=== PATIENT | female | born 1940 | race Hispanic/Latino ===

== ENCOUNTER 2025-05-01 13:51 | Emergency (ER) | payer MEDICARE ==
[~2025-05-01] VITALS: Ht 154.9 cm; Wt 62.6 kg
[~2025-05-01 13:51] MED LIST: AMLO-257 PO; ASPI-1005 PO; DOCU-116 PO; GABA-529 PO; HYDR-3421 PO; LEVO-70 PO; LOSA50TA64 PO; METO25TA6 PO; MIRA25TA PO; OMEP20CA12 PO; PIOG30TA70 PO
[2025-05-01 14:29] VITALS: TEMP 98
[2025-05-01] MEDS: ORPHENADRINE 60MG/2ML IM ONE (15:30)
[2025-05-01 15:33] LABS: IMMATURE GRANULOCYTE ABSOLUTE 0.02 K/uL (0-1); NUCLEATED RED BLOOD CELLS 0.0 % (0.0-0.19); PLATELET COUNT (AUTO) 245 K/uL (130-400); RED BLOOD CELL COUNT(AUTO) 4.08 MIL/uL (4.00-5.50); RED CELL DISTRIBUTION WIDTH 15.2 % (11.0-15.5); WHITE BLOOD COUNT (AUTO) 5.9 K/uL (4.8-10.8)
[2025-05-01 15:46] LABS: CREATINE KINASE, TOTAL 28.0 U/L (21-232); CREATININE 0.6 mg/dL (0.5-1.0); GLOMERULAR FILTR. RATE CALC 88.0 mL/min (>90); GLUCOSE,RANDOM 211.0 mg/dL (70-105); SODIUM SERUM 143.0 mmol/L (136-145); UREA NITROGEN, BLOOD 11.0 mg/dL (7-18)
--- NOTE | 2025-05-01 15:54 | NUR ---
K-3.0 MICHI MADE AWARE
--- NOTE | 2025-05-01 16:04 | ERN ---
General Chief Complaint: Upper Extremity Pain/Injury Stated Complaint: PAIN TO THE RIGHT ARM Time Seen by MD: 13:52 Source: patient History of Present Illness Initial Comments PATIENT IS AN 85-YEAR-OLD FEMALE COMING IN TO BE EVALUATED FOR LEFT SHOULDER PAIN. PER PATIENT THE PAIN HAS BEEN ONGOING FOR A COUPLE OF DAYS. THE PAIN RADIATES TO THE LEFT TRAPEZIUS AREA. SHE DID NOT RECALL ANY FALLING OR ANY TRAUMA THAT COULD HAVE CAUSED IT. Allergies: Uncoded Allergies: PENCILLIN (Allergy, Unknown, 12/23/23) Home Meds Active Scripts Levofloxacin (Levofloxacin) 500 Mg Tablet, 500 MG PO DAILY, #4 TAB Prov:SILASELI B AGPCNP 02/13/25 Reported Medications Mirabegron (Myrbetriq) 25 Mg Tab.er.24h, 1 TAB PO DAILY for 30 Days, #30 TAB 0 Refills 02/10/25 Losartan Potassium (Losartan Potassium) 50 Mg Tablet, 50 MG PO BID, TAB 02/10/25 Docusate Sodium (Colace) 100 Mg Capsule, 100 MG PO BID, CAP 02/10/25 Pioglitazone HCl (Pioglitazone HCl) 30 Mg Tablet, 30 MG PO AM, TAB 02/10/25 Gabapentin (Gabapentin) 100 Mg Capsule, 300 MG PO BID, CAP 02/10/25 Omeprazole (Omeprazole) 20 Mg Capsule.dr, 20 MG PO AM, CAP 02/10/25 Hydroxyzine HCl (Hydroxyzine HCl) 25 Mg Tablet, 1 TAB PO QIDP for ITCHING for 10 Days, #30 TAB 0 Refills 02/10/25 Aspirin (ASPIRIN 81MG CHEW TAB) 81 Mg Tab.chew, 81 MG PO DAILY, TAB.CHEW 02/10/25 Amlodipine Besylate (Amlodipine Besylate) 5 Mg Tablet, 5 MG PO AM, TAB 02/10/25 Metoprolol Tartrate (Metoprolol Tartrate) 25 Mg Tablet, 1 TAB PO BID for 30 Days, #60 TAB 0 Refills 02/10/25 Past Medical History Past Medical History: CVA, Diabetes-Type II, GERD, High Cholesterol, Hypertension, Other Medical History Other: RA Past Surgical History: Cholecystectomy ROS Dictation CONSTITUTIONAL: NO CHILLS, NO FEVER, NO WEAKNESS, NO DIAPHORESIS, NO MALAISE. HEAD/FACE: NO SIGNS OF TRAUMA. EENT: NO EYE PAIN, NO BLURRED VISION, NO TEARING, NO DOUBLE VISION, NO EAR PAIN, NO EAR DISCHARGE, NO NOSE PAIN, NO NASAL CONGESTION, NO THROAT PAIN, NO THROAT SWELLING, NO MOUTH PAIN. RESPIRATORY: NO COUGH, NO ORTHOPNEA, NO SOB, NO STRIDOR, NO WHEEZING. CARDIOVASCULAR: NO CHEST PAIN, NO EDEMA, NO PALPITATIONS, NO SYNCOPE. GASTROINTESTINAL/ABDOMINAL: NO ABDOMINAL PAIN, NO CONSTIPATION, NO DIARRHEA, NO NAUSEA, NO VOMITING. GENITOURINARY: NO ABNORMAL DISCHARGE, NO DYSURIA, NO FREQUENT URINATION, NO HEMATURIA. NO COMPLAINTS OF PAIN IN THE GENITALS. MUSCULOSKELETAL: NO BACK PAIN, NO GOUT, JOINT PAIN, NO JOINT SWELLING, MUSCLE PAIN, NO MUSCLE STIFFNESS, NO NECK PAIN. INTEGUMENTARY: NO CHANGE IN COLOR, NO CHANGE IN HAIR/NAILS, NO DRYNESS, NO LESI ON, NO LUMPS, NO RASH. NEUROLOGICAL/PSYCH: NO ANXIETY, NOT DEPRESSED, NO EMOTIONAL PROBLEM, NO HEADACHE, NO NUMBNESS, NO PRE-EXISTING DEFICIT, NO HISTORY OF SEIZURES, NO TREMORS, NO WEAKNESS. HEMATOLOGIC/LYMPHATIC: NOT ANEMIC, NO HISTORY OF BLOOD CLOTS, NO APPARENT BLEEDING, NO BRUISING, GLANDS NOT SWOLLEN. ALL SYSTEMS NEGATIVE, EXCEPT NOTED. Physical Exam Physical Exam Dictation VITAL SIGNS: REVIEWED. GENERAL APPEARANCE: ALERT, ORIENTED X3, NO ACUTE DISTRESS, OBESE. HEAD AND FACE: NON-TRAUMATIC. EYES: PERRL, PINK CONJUNCTIVAS, EYELID NO TRAUMA, ANTERIOR CHAMBER CLEAR. EARS: PINNAS INTACT AND NO SIGNS OF TRAUMA OR ERYTHEMA. EAR CANALS CLEAR AND NO DISCHARGE. TMS NO ERYTHEMA. NOSE: NO DISCHARGE, NO BLEEDING. OROPHARYNX: MOUTH NORMAL, TEETH NO CARIES, TONGUE PINK. PHARYNX CLEAR, NO ERYTHEMA. TONSILS NO EXUDATES, NO ABSCESSES NOTED. MUCOUS MEMBRANE MOIST. NECK: SUPPLE, NON-TENDER, NO THYROMEGALY, NO MASSES, NO JVD, NO BRUITS. BREAST: DEFERRED. CHEST: NO TENDERNESS, NO CREPITUS, NO PARADOXICAL MOVEMENT, NO RETRACTIONS. LUNGS: CLEAR, WELL-VENTILATED, SYMMETRIC, NO RALES, NO WHEEZING, NO RHONCHI, NO STRIDOR, GOOD BREATH SOUNDS BILATERALLY. HEART: REGULAR RATE, REGULAR RHYTHM, NO MURMUR, NO GALLOPS. VASCULAR: NO PERIPHERAL EDEMA. ABDOMEN: SOFT, POSITIVE BOWEL SOUNDS, NONDISTENDED, NO GUARDING, NONTENDER, NO REBOUND, NO MASSES NO HEPATOMEGALY, NO SPLENOMEGALY, NO IBARRA'S SIGN, NO HERNIAS. RECTAL: DEFERRED. GENITAL: DEFERRED. NEUROLOGICAL: NORMAL SPEECH, GROSS MOTOR FUNCTION INTACT, GROSS SENSORY FUNCTION INTACT. MUSCULOSKELETAL: NECK NONTENDER, FULL RANGE OF MOTION, BACK NONTENDER, FULL RANGE OF MOTION. EXTREMITIES: NONTENDER, FULL RANGE OF MOTION. LEFT SHOULDER PAIN ON PALPATION SKIN: COLOR PINK, DRY, NO TURGOR, NO RASH, NO LACERATIONS, NO ABRASIONS, NO CONTUSIONS. LYMPHATICS: DEFERRED. Results Laboratory and Microbiology Lab and Micro Result Laboratory Tests Test 05/01/25 15:27 White Blood Count 5.9 K/uL (4.8-10.8) Red Blood Count 4.08 MIL/uL (4.00-5.50) Hemoglobin 12.8 g/dL (12.0-16.0) Hematocrit 38.7 % (36-48) Mean Corpuscular Volume 94.9 fL (79-99) Mean Corpuscular Hemoglobin 31.4 pg (27.0-33.0) Mean Corpuscular Hemoglobin Concent 33.1 g/dL (32.0-36.0) Red Cell Distribution Width 15.2 % (11.0-15.5) Platelet Count 245 K/uL (130-400) Mean Platelet Volume 11.2 fL (7.5-10.5) H Immature Granulocyte % (Auto) 0.3 % (0-1) Neutrophils (%) (Auto) 52.6 % (40.0-77.0) Lymphocytes (%) (Auto) 37.9 % (21.0-51.0) Monocytes (%) (Auto) 4.9 % (3.0-13.0) Eosinophils (%) (Auto) 3.4 % (0.0-8.0) Basophils (%) (Auto) 0.9 % (0.0-5.0) Neutrophils # (Auto) 3.1 K/uL (1.8-7.7) Lymphocytes # (Auto) 2.2 K/uL (1.0-4.8) Monocytes # (Auto) 0.3 K/uL (0.1-1.0) Eosinophils # (Auto) 0.20 K/uL (0.00-0.70) Basophils # (Auto) 0.05 K/uL (0.00-0.20) Absolute Immature Granulocyte (auto 0.02 K/uL (0-1) Nucleated Red Blood Cells 0.0 % (0.0-0.19) Sodium Level 143 mmol/L (136-145) Potassium Level 3.0 mmol/L (3.5-5.1) *L Chloride Level 104 mmol/L (101-111) Carbon Dioxide Level 30 mmol/L (21-32) Blood Urea Nitrogen 11 mg/dL (7-18) Creatinine 0.6 mg/dL (0.5-1.0) Glomerular Filtration Rate Calc 88 mL/min (>90) Random Glucose 211 mg/dL (70-105) H Total Calcium 9.4 mg/dL (8.5-10.1) Total Creatine Kinase 28 U/L (21-232) # Labs Reviewed?: Yes EKG/XRAY/US/CT/MRI EKG Comment 05/01/2025 TIME 2:41 P.M. VENTRICULAR RATE 57 SINUS RHY[address]M [address] WAVE ELEVATION OR DEPRESSION MDM MDM: DIFFERENTIAL DIAGNOSIS: SHOULDER STRAIN, MUSCLE SPASMS, RATIONALE: TESTS CONSIDERED AND ORDERED SECONDARY TO SHARED DECISION MAKING INCLUDE: PREVIOUS OUTSIDE RECORDS REVIEWED: OLD ER VISITS. RISK OF COMPLICATION AND/OR MORBIDITY OR MORTALITY OF PATIENT MANAGEMENT: NONE MEDICATIONS-PER MEDICATION RECONCILIATION NEED FOR HOSPITALIZATION: PATIENT DOES NOT MEET CRITERIA FOR HOSPITALIZATION. NEED FOR EMERGENCY MAJOR/MINOR SURGERY: NO PATIENT IS A AN 85-YEAR-OLD FEMALE COMING IN TO BE EVALUATED FOR LEFT SHOULDER PAIN. PHYSICAL EXAM THERE IS TENDERNESS TO THE LEFT DELTOID AND LEFT TRAPEZIUS MUSCLE. LIDOCAINE PATCH WAS PLACED AFTER THE ANTISPASMODICS SLING WAS PLACED WELL. PATIENT WILL BE DISCHARGED IN STABLE CONDITION. ED Course Orders Procedure Category Date Status Time Cbc With Differential LAB 05/01/25 Complete 14:30 12 Lead Ekg Tracing- EKG 05/01/25 Logged Technical 14:30 Creatine Kinase, Total LAB 05/01/25 Complete 14:30 Basic Metabolic Panel LAB 05/01/25 Complete 14:30 Orphenadrine Citrate PHA 05/01/25 Complete (Norflex) 14:30 Shoulder Comp 2+Vws Lt RAD 05/01/25 Taken 14:30 Potassium Bicarb/Cit PHA 05/01/25 Logged Ac 25meq (K-Lyte Ta 16:00 Current Medications Medications (Trade) Dose Ordered Sig/Rosalba Route PRN Reason Start Time Stop Time Status Last Admin Dose Admin Orphenadrine Citrate (Norflex) 60 mg ONCE ONCE IM 05/01/25 14:30 05/01/25 14:40 DC 05/01/25 15:30 Potassium Bicarbonate (K-Lyte Tablet Eff 25 Meq Tablet.eff) 50 meq ONCE ONCE PO 05/01/25 16:00 05/01/25 16:01 UNV Vital Signs Date Time Temp Pulse Resp B/P (MAP) Pulse Ox O2 Delivery O2 Flow Rate FiO2 05/01/25 14:29 98.1 64 20 162/85 97 Room Air 0 DX & DISP Disposition: Discharge Departure Impression: Primary Impression: Left shoulder strain Additional Impression: Muscle spasm of left shoulder Condition: Stable Additional Instructions: FOLLOW-UP WITH PRIMARY CARE PROVIDER IN 1 TO 2 DAYS. TAKE MEDICATIONS DIRECTED HERE IN THE EMERGENCY ROOM. OKAY TO CONTINUE HOME MEDICATIONS UNLESS OTHERWISE DISCUSSED DURING YOUR VISIT IN THE EMERGENCY ROOM TODAY. RETURN TO YOUR NEAREST EMERGENCY ROOM IF SYMPTOMS WORSEN OR IF THERE IS NO IMPROVEMENT. CALL 911 IF YOU NEED IMMEDIATE ASSISTANCE. TAKE TYLENOL [id number] NEEDED AND IF NO CONTRAINDICATIONS ARE PRESENT. INCREASE ORAL HYDRATION. A WOUND CULTURE OR URINE CULTURE WAS ORDERED HERE IN THE EMERGENCY ROOM DEPARTMENT PLEASE FOLLOW-UP WITH PRIMARY CARE PROVIDER AND ADVISE THEM TO GET REPORTS FROM OUR FACILITY. IF YOU HAD ANY MATT WRAP/SPLINTS THAT WERE APPLIED HERE, PLEASE DO NOT REMOVE THEM UNTIL YOU SEE YOUR PRIMARY CARE OR SPECIALTY. REFERRALS: Referrals: ANASTASIA ORTIZ (PCP) Time of Disposition: 16:04 HÉCTOR MCCLELLAN MD May 01, 2025 16:04
[2025-05-01] MEDS ORDERED: LIDO1ADH71 TP (16:05)
[2025-05-01 16:18] VITALS: BP 152/65; PULSE 61; RESP 17; O2SAT 98
[2025-05-01] MEDS: LIDOCAINE 4% ADH..PATCH TP ONE (16:30)
--- NOTE | 2025-05-02 07:24 | EKG ---
[facility] Test Date: 2025-05-01 Test Time: 14:41:02 Pat Name: JENNIFER MARTINEZ Department: ED Room: Gender: F [employer]: [id number] : 1940 Requested By: HÉCTOR MCCLELLAN Order Number: [id number] Reading MD: Joo Rocha Measurements Intervals [place] Rate: 57 P: 12 AK: 143 QRS: -31 QRSD: 113 T: 66 QT: 474 QTc: 464 Interpretive Statements Sinus rhythm Incomplete left bundle branch block LVH with secondary repolarization abnormality Compared to ECG 12/23/2023 10:33:16 No significant changes Electronically Signed On 05-02-2025 16:45:23 CDT by Joo Rocha Please click the below link to view image of tracing.
== END 2025-05-01 16:42 | disposition home or self-care (01) ==
LOC: EDH 13:51
DX: S46.912A Strain of unspecified muscle, fascia and tendon at shoulder and upper arm level, left arm, initial encounter (principal); M62.838 Other muscle spasm; E11.9 Type 2 diabetes mellitus without complications; E78.00 Pure hypercholesterolemia, unspecified; I10 Essential (primary) hypertension; Z79.82 Long term (current) use of aspirin; Z79.899 Other long term (current) drug therapy; Z86.73 Personal history of transient ischemic attack (TIA), and cerebral infarction without residual deficits; Z90.49 Acquired absence of other specified parts of digestive tract; X58.XXXA Exposure to other specified factors, initial encounter; Y93.89 Activity, other specified; Y92.89 Other specified places as the place of occurrence of the external cause; Y99.8 Other external cause status
CPT/HCPCS: 36415; 73030; 80048; 82550; 85025; 93005; 96372; 99285; J2360